=== PATIENT | male | born 1945 | race Caucasian/White ===

== ENCOUNTER 2021-12-13 11:19 | Emergency (ER) | payer MEDICARE, SELFPAY ==
[2021-12-13 11:31] VITALS: BP 150/89; PULSE 76; RESP 16; TEMP 36.5; O2SAT 98
--- NOTE | 2021-12-13 11:33 | ED.EAR ---
HPI - Ear Problem General Chief complaint: Ear Stated complaint: trouble hearing, ear pain Time Seen by Provider: 12/13/21 11:33 Source: patient, RN notes reviewed and old records reviewed Mode of arrival: ambulatory Limitations: no limitations History of Present Illness HPI Narrative: 76 year old male presents to [facility] care with complaints that he had cold symptoms for the past 2 weeks and now he has bilateral ear pain and he can't hear today. Patient denies any cough or any shortness of breath, sore throat or any body aches. He states that he has not taken any OTC medication for his symptoms. MD Complaint: ear pain and decreased hearing Location: bilateral Discharge from ear: Reports no Treatment prior to arrival: none Related Data Allergies Allergy/AdvReac Type Severity Reaction Status Date / Time simvastatin Allergy Unknown Nausea Verified 06/23/20 09:23 Review of Systems Review of Systems: CONSTITUTIONAL: Denies fever, chills, or sweats. EYES: Denies visual changes, redness, or discharge. ENT: Positive for rhinorrhea, congestion, no sore throat,positive for bilateral otalgia and decreased hearing CARDIOVASCULAR: Denies chest pain, palpitations, or edema. RESPIRATORY: Reports occasional cough denies dyspnea. GASTROINTESTINAL: Denies abdominal pain, nausea, vomiting, or diarrhea. GENITOURINARY: Denies dysuria or hematuria. SKIN: Denies rash or itching. MUSCULOSKELETAL: Denies back pain, joint pain, or myalgia. NEUROLOGIC: Denies headache, numbness, or weakness. PSYCHIATRIC: Denies anxiety or depression. All systems reviewed & are unremarkable except as noted in HPI and below PMFSH Past Medical History Medical History (Updated 12/14/21 @ 07:57 by Eveline Bruce NP) Arthritis Fracture, ankle bilateral ankle fracture Surgical History Surgical History (Updated 12/14/21 @ 07:56 by Eveline Bruce NP) History of hip replacement bilateral hip replacements Family History Family History Mother Acute myocardial infarction Sibling Family history of condition Family history of malignant neoplasm of uterus Father Malignant neoplasm of prostate Social History Social History (Updated 12/14/21 @ 07:57 by Eveline Bruce NP) Smoking status: Former smoker Second hand tobacco smoke exposure: No Smoking end date: 02/20/86 Alcohol intake: current Substance use type: does not use Gender identity (if verbalized by the patient): Male Comments At time of signature, agree with nursing past medical, surgical, social and family history. There is no relevant family history pertinent to the presenting complaint Exam Narrative: GENERAL: Well-appearing, well-nourished, and in no acute distress. HEAD: Normocephalic, atraumatic. EYES: PERRLA and EOMI. ENT: Nares with minimal redness and clear rhinorrhea no epistaxis. Mucous membranes moist.TM's bilaterally red and bulging with dull light reflex, throat pink with no lesions or swelling. NECK: Supple.no lymphadenopathy CHEST: Clear to auscultation. No respiratory distress.SAO2 98% on room air HEART: Regular rate and rhythm. No murmur heard. Normal peripheral pulses. ABDOMEN: Soft, nontender, nondistended, normal active bowel sounds. EXTREMITIES: Normal range of motion. No edema. SKIN: Warm, dry, no rash. NEURO: No focal deficits. Alert and oriented x3. Course Course Level of Care: Express Care Visit Vital Signs Vital signs: Vital Signs Temperature 36.5 C 12/13/21 11:31 Pulse Rate 76 12/13/21 11:31 Respiratory Rate 16 12/13/21 11:31 Blood Pressure 150/89 H 12/13/21 11:31 Pulse Oximetry 98 12/13/21 11:31 Temperature 36.5 C 12/13/21 11:31 Pulse Rate 76 12/13/21 11:31 Respiratory Rate 16 12/13/21 11:31 Blood Pressure 150/89 H 12/13/21 11:31 Pulse Oximetry 98 12/13/21 11:31 Medical Decision Making Differential Diagnosis Differential Diagnosis: otit
== END 2021-12-13 11:42 | disposition home or self-care (01) ==
PROVIDERS: Emergency Provider Registered Nurse
DX: H65.03 Acute serous otitis media, bilateral (principal); Z87.891 Personal history of nicotine dependence; M19.90 Unspecified osteoarthritis, unspecified site; Z96.643 Presence of artificial hip joint, bilateral
CPT/HCPCS: 99213; G0463

== ENCOUNTER 2022-01-15 13:39 | Emergency (ER) | payer MEDICARE, SELFPAY ==
[2022-01-15 13:57] VITALS: BP 124/71; PULSE 64; RESP 16; TEMP 36.6; O2SAT 98
--- NOTE | 2022-01-15 14:08 | ED.URI ---
HPI - URI/Sore Throat General Chief Complaint: Upper Respiratory Infection Stated Complaint: sinus drainage Time Seen by Provider: 01/15/22 14:00 Source: patient Mode of arrival: ambulatory Limitations: no limitations History of Present Illness HPI Narrative: Mr. Talbot is a 76-year-old male patient presenting to the clinic today with complaints of sinus drainage times 4-5 days. He reports that he was placed on Augmentin for 10 days for a bilateral ear infection and he just finished that up about 4-5 days ago however he developed sinus drainage at that time. He denies any fever or chills. He reports that his nose is running excessively so much that is cause some sores to his chin and upper lip. MD elicited complaint: sore throat and nasal congestion Related Data Allergies Allergy/AdvReac Type Severity Reaction Status Date / Time simvastatin Allergy Unknown Nausea Verified 06/23/20 09:23 Review of Systems Review of Systems: Pertinent positives per HPI. Patient denies any fever, chills, rash, headache, visual changes, dizziness, cough, shortness of breath, chest pain, palpitations, nausea, vomiting, diarrhea, constipation, abdominal pain, or any urinary issues. [facility] Past Medical History Medical History Arthritis Fracture, ankle bilateral ankle fracture Surgical History Surgical History History of hip replacement bilateral hip replacements Family History Family History Mother Acute myocardial infarction Sibling Family history of condition Family history of malignant neoplasm of uterus Father Malignant neoplasm of prostate Social History Social History Smoking status: Former smoker Second hand tobacco smoke exposure: No Smoking end date: 02/20/86 Alcohol intake: current Substance use type: does not use Gender identity (if verbalized by the patient): Male Comments At the time of my signature, I reviewed and agree with the nursing past medical, surgical, social, and family history. There is no relevant family history pertinent to the patient complaint. Exam Narrative: General: Well-developed, well nourished, in no apparent distress Head: Normocephalic, atraumatic Eyes: Pupils equally round and reactive to light bilaterally, EOM intact, sclera and conjunctive clear, no discharge, lids normal Ears: TMs intact and dull, ear canals clear, no drainage, grossly hearing normal. Nose: Nares patent, clear nasal discharge, severe inflammation, mild sinus tenderness. Mouth: Oral pharynx without lesions or masses, good dentition, MMM. Has yellow crusted skin sores to the top of the upper lip as well as around the mouth Neck: Supple, trachea midline, no enlargement of anterior or posterior cervical nodes, no thyroid masses or goiter palpable. Cardio: Regular rate and rhythm, s1 and s2 normal, no murmur appreciated. Resp: Clear to auscultation bilaterally, no rhonchi, rales, wheezing or rubs Course Course Emergency Course: Portions of this record may have been created with voice recognition software. Level of Care: Express Care Visit Vital Signs Vital signs: Vital Signs Temperature 36.6 C 01/15/22 13:57 Pulse Rate 64 01/15/22 13:57 Respiratory Rate 16 01/15/22 13:57 Blood Pressure 124/71 01/15/22 13:57 Pulse Oximetry 98 01/15/22 13:57 Temperature 36.6 C 01/15/22 13:57 Pulse Rate 64 01/15/22 13:57 Respiratory Rate 16 01/15/22 13:57 Blood Pressure 124/71 01/15/22 13:57 Pulse Oximetry 98 01/15/22 13:57 Vital signs reviewed MDM - URI/Sore Throat MDM Narrative Medical decision making narrative: At the time of visit patient is resting comfortably on the exam table. I suspect he has a upper respiratory infection. H
== END 2022-01-15 14:16 | disposition home or self-care (01) ==
PROVIDERS: Emergency Provider Nurse Practitioner Family
DX: J06.9 Acute upper respiratory infection, unspecified (principal); L08.9 Local infection of the skin and subcutaneous tissue, unspecified; B95.8 Unspecified staphylococcus as the cause of diseases classified elsewhere; Z87.891 Personal history of nicotine dependence
CPT/HCPCS: 99213; G0463

== ENCOUNTER 2022-01-27 09:48 | Emergency (ER) | payer MEDICARE, SELFPAY ==
[2022-01-27 10:10] VITALS: BP 148/82; PULSE 67; RESP 20; TEMP 36.3; O2SAT 99
--- NOTE | 2022-01-27 10:15 | ED.URI ---
HPI - URI/Sore Throat General Chief Complaint: Upper Respiratory Infection Stated Complaint: headache, sinus drainage Time Seen by Provider: 01/27/22 10:15 Source: patient Mode of arrival: ambulatory Limitations: no limitations History of Present Illness HPI Narrative: 76-year-old male presents with complaint of runny nose, postnasal drainage for 2-3 days. Not taking [id number] medications to treat his symptoms. Afebrile. No cough or shortness of breath. No nausea vomiting diarrhea. Patient is well appearing. Has not had a PCP for 2 years. Reports history of bacterial sinus infections and ear infections so came in to have his ear checked. All systems reviewed and negative except as noted above. Related Data Allergies Allergy/AdvReac Type Severity Reaction Status Date / Time simvastatin Allergy Unknown Nausea Verified 06/23/20 09:23 Review of Systems Review of Systems: CONSTITUTIONAL: Denies fever, chills, or sweats. EYES: Denies visual changes, redness, or discharge. ENT: Reports rhinorrhea, postnasal drainage. Denies congestion, sore throat, or otalgia. CARDIOVASCULAR: Denies chest pain, palpitations, or edema. RESPIRATORY: Denies cough or dyspnea. GASTROINTESTINAL: Denies abdominal pain, nausea, vomiting, or diarrhea. GENITOURINARY: Denies dysuria or hematuria. SKIN: Denies rash or itching. MUSCULOSKELETAL: Denies back pain, joint pain, or myalgia. NEUROLOGIC: Denies headache, numbness, or weakness. PSYCHIATRIC: Denies anxiety or depression. All other systems reviewed are negative, except as documented in HPI. [facility] Past Medical History Medical History Arthritis Fracture, ankle bilateral ankle fracture Surgical History Surgical History History of hip replacement bilateral hip replacements Family History Family History Mother Acute myocardial infarction Sibling Family history of condition Family history of malignant neoplasm of uterus Father Malignant neoplasm of prostate Social History Social History Smoking status: Former smoker Second hand tobacco smoke exposure: No Smoking end date: 02/20/86 Alcohol intake: current Substance use type: does not use Gender identity (if verbalized by the patient): Male Comments At time of signature, agree with nursing past medical, surgical, social and family history. There is no relevant family history pertinent to the presenting complaint. Exam Narrative: GENERAL: This is a well-nourished, well-developed patient, in no apparent distress. HEAD: normocephalic, atraumatic. EYES: PERRL. Sclera clear/white. Vision is grossly intact. EARS: External ears normal, auditory canals clear and without drainage, TMs normal without perforation. Hearing grossly intact. NOSE: External nose normal with clear nasal drainage, mild erythema dinner tray THROAT: Mucous membranes moist, clear postnasal drainage. NECK: Neck supple, non-tender without lymphadenopathy, masses or thyromegaly. CARDIOVASCULAR: Regular rate and rhythm without murmurs, gallops, or rubs. RESPIRATORY: Clear to auscultation. Breath sounds equal bilaterally. No wheezes, rales, or rhonchi. SKIN: warm, Dry, intact with no suspicious lesions or rash, good texture and turgor. NEURO: awake, alert, and oriented to person, place and time. There were no obvious focal neurologic abnormalities. EXTREMITIES: No joint tenderness, effusion, or edema noted. Course Course Level of Care: Express Care Visit Vital Signs Vital signs: Vital Signs Temperature 36.3 C L 01/27/22 10:10 Pulse Rate 67 01/27/22 10:10 Respiratory Rate 20 01/27/22 10:10 Blood Pressure 148/82 H 01/27/22 10:10 Pulse Oximetry 99 01/27/22 10:10 Oxygen Delivery Room Air 12
== END 2022-01-27 10:28 | disposition home or self-care (01) ==
PROVIDERS: Emergency Provider Nurse Practitioner Family
DX: J32.9 Chronic sinusitis, unspecified (principal); Z87.891 Personal history of nicotine dependence; M19.90 Unspecified osteoarthritis, unspecified site
CPT/HCPCS: 99213; G0463

== ENCOUNTER 2023-06-19 09:41 | Emergency (ER) | payer MEDICARE, SELFPAY ==
[2023-06-19 09:49] VITALS: BP 160/78; PULSE 81; RESP 16; TEMP 36.8; O2SAT 100
--- NOTE | 2023-06-19 10:15 | ED.GENADULT ---
HPI - General Adult General Chief complaint: Medical Clearance Stated complaint: Sore on Butt Time Seen by Provider: 06/19/23 10:22 Source: patient, RN notes reviewed and old records reviewed Mode of arrival: ambulatory Limitations: no limitations History of Present Illness HPI narrative: 78-year-old male presents to the [facility] with multiple complaints. Patient presents with a sore on the right inner buttock. Patient states it has been getting worse over the last 2 days. Denies any treatment prior to arrival. Reports pain when sitting. Complains of constipation since yesterday. States that he has been having a smaller than normal bowel movement. No treatment prior to arrival states for the last 3 days he has had gout in his left great toe. Swelling was noted. No redness. Has been taking Tylenol and icing it. Has a history of gout. Patient denies having a primary care provider states he has not seen a primary care provider in several years. Denies taking any daily medication Related Data Allergies Allergy/AdvReac Type Severity Reaction Status Date / Time simvastatin Allergy Unknown Nausea Verified 06/19/23 10:59 Review of Systems Review of Systems: All systems reviewed & are unremarkable except as noted in HPI and below Constitutional: Constitutional: Reports no additional constitutional complaints Eyes: Eyes: Reports no additional eye complaints ENT: Reports system reviewed and no additional complaints, except as documented Cardiovascular: Cardiovascular: Reports no additional cardiovascular complaints, Denies chest pain and Denies dyspnea Respiratory: Respiratory: Reports no additional respiratory complaints, Denies chest congestion, Denies cough and Denies dyspnea Gastrointestinal: Gastrointestinal: Reports as per HPI, Denies abdominal pain, Reports constipation, Denies nausea and Denies vomiting Musculoskeletal: Musculoskeletal: Reports as per HPI, Reports arthralgias (Left great toe) and Reports joint swelling (MTP the left great toe) Integumentary/Breasts: Skin/Breast: Reports as per HPI Neurologic: Reports system reviewed and no additional complaints, except as documented Psychiatric: Psychiatric: Reports no additional psychiatric complaints Allergic/Immunologic: Allergic/Immunologic: Reports no additional allergic/immunologic complaints [facility] Past Medical History Medical History Arthritis Fracture, ankle bilateral ankle fracture Surgical History Surgical History History of hip replacement bilateral hip replacements Family History Family History Mother Acute myocardial infarction Sibling Family history of condition Family history of malignant neoplasm of uterus Father Malignant neoplasm of prostate Social History Social History Smoking status: Former smoker Second hand tobacco smoke exposure: No Smoking end date: 02/20/86 Alcohol intake: current Substance use type: does not use Gender identity (if verbalized by the patient): Male Comments At the time of my signature, I reviewed and agree with the nursing past medical, surgical, social, and family history. There is no relevant family history pertinent to the patient complaint. Exam Const: General: cooperative, healthy appearing, comfortable, no acute distress, well developed, alert and well nourished Nutritional Appearance: well nourished Orientation/consciousness: patient oriented x3 Limitations: no limitations HENMT: Head: normal to inspection Ears: hearing grossly normal bilaterally and external ears normal Face/Nose/Sinus: Normal external nose present, Normal nares present, Normal nasal mucous membranes and turbinates present, normal facial exam and face symmetric Face and sinus: normal faci
== END 2023-06-19 10:37 | disposition short-term general hospital (02) ==
PROVIDERS: Emergency Provider Nurse Practitioner
DX: K62.89 Other specified diseases of anus and rectum (principal); M79.675 Pain in left toe(s); Z87.891 Personal history of nicotine dependence; M19.90 Unspecified osteoarthritis, unspecified site
CPT/HCPCS: 99212; G0463

== ENCOUNTER 2023-06-19 10:58 | Emergency (ER) | payer MEDICARE, SELFPAY ==
--- NOTE | ~2023-06-19 | CT_ITS ---
EXAMINATION: CT abdomen pelvis w con DATE: 06/19/2023 11:51 INDICATION: Perirectal abscess TECHNIQUE: Computed tomography (CT) of the abdomen and pelvis was performed with 100 cc Omnipaque 350 intravenous contrast. The dose-length product was 455.57 mGy-cm. Automated exposure control and iter ative reconstruction technique were employed. COMPARISON: No prior studies for comparison. FINDINGS: There is a 3 mm left lower lobe nodule, image 28. Heart size normal. No significant pleural or pericardial effusion. Small hiatal hernia. The liver, spleen, pancreas, adrenal glands are unrema rkable. Gallbladder is present. There are bilateral renal cysts. Normal appendix. Nonobstructive jcaob l gas pattern. There is a bilobed perirectal abscess crossing the midline measuring 3.8 x 3.6 x 3.7 c m. No free air. No free fluid. There are small fat-containing umbilical hernias. Severe lumbar spondy losis. There are bilateral hip arthroplasties. IMPRESSION: 1. Perirectal abscess measuring 3.8 x 3.6 x 3.7 cm. 2: Left lower lobe nodule measuring 3 mm, likely benign. Reviewed, dictated and finalized at location B.
[2023-06-19 11:15] VITALS: BP 152/97; PULSE 77; RESP 16; TEMP 36.6; O2SAT 98
[2023-06-19 11:42] LABS: Basophils Percent Auto 0.4 % (0.2-1.2); Eosinophils Absolute Auto 0.1 K/mm3 (0-0.3); Eosinophils Percent Auto 1.4 % (0-4.4); Hematocrit 44.2 % (42.0-52.0); Hemoglobin 14.5 g/dL (14.0-18.0); Immature Granulocyte Absolute 0.03 K/mm3 (0.00-0.031); Immature Granulocyte Percent A 0.3 % (0-0.5); Lymphocytes Absolute Auto 1.18 K/mm3 (0.9-3.2); Lymphocytes Percent Auto 11.7 % (18.3-44.2); Mean Corpuscular HGB Conc 32.8 g/dl (32-36); Mean Corpuscular Hemoglobin 33.9 pg (26-34); Mean Corpuscular Volume 103.3 fl (80-100); Mean Platelet Volume 9.6 fl (7.4-10.4); Monocytes Absolute Auto 0.6 K/mm3 (0.1-0.6); Monocytes Percent Auto 5.5 % (2.6-8.5); Neutrophils Absolute Auto 8.2 K/mm3 (1.3-6.7); Neutrophils Percent Auto 80.7 % (45.5-73.1); Platelet Count Result 312 k/mm3 (150-375); Red Blood Count 4.28 M/mm3 (4.6-6.20); Red Cell Distribution Width 12.8 % (11.5-14.5); White Blood Count 10.1 K/mm3 (4.5-10.0)
[2023-06-19 11:48] LABS: Estimated CRCL calculation 36 ml/min; Estimated Glomerular Filt Rate 54
--- NOTE | 2023-06-19 12:00 | ED.SKABFB ---
HPI - Skin/Abscess/Foreign Bdy General Chief complaint: Skin/Abscess/Foreign Body Stated complaint: rectal abscess Time Seen by Provider: 06/19/23 11:30 Source: patient, family and other ([facility] at urgent care) Mode of arrival: ambulatory Limitations: no limitations History of Present Illness HPI narrative: Patient presents with pain at his rectum x3 days. No fevers. Never happened before. Related Data Allergies Allergy/AdvReac Type Severity Reaction Status Date / Time simvastatin Allergy Unknown Nausea Verified 06/19/23 11:17 [facility] Past Medical History Medical History Arthritis Fracture, ankle bilateral ankle fracture Surgical History Surgical History History of hip replacement bilateral hip replacements Family History Family History Mother Acute myocardial infarction Sibling Family history of condition Family history of malignant neoplasm of uterus Father Malignant neoplasm of prostate Social History Social History (Updated 06/20/23 @ 06:10 by Eleanor Pang MD) Smoking status: Former smoker Second hand tobacco smoke exposure: No Smoking end date: 02/20/86 Alcohol intake: current Substance use type: does not use Occupation/Education: retired Additional occupation/education comments: 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 HEAD: Normocephalic, atraumatic. EYES: Non injected, non icteric ENT: Nares clear, no rhinorrhea or epistaxis. NECK: Supple. CHEST: Speaking in full sentences. No respiratory distress. HEART: Regular rate and rhythm. . ABDOMEN: Soft, nondistended. Buttock/rectal exam: Normal rectal sphincter. No evidence of fissure. Patient has erythematous mass at rectum approximately 3 o'clock to 6 o'clock position, soft medially and more indurated along lateral edges, tender to palpation. EXTREMITIES: Normal range of motion. No edema. SKIN: Warm, dry, no rash. NEURO: No focal deficits. Alert and oriented x3. PSYCH: Normal mood and affect. Course Vital Signs Vital signs: Vital Signs Temperature 97.8 F 06/19/23 11:15 Pulse Rate 77 06/19/23 11:15 Respiratory Rate 16 06/19/23 11:15 Blood Pressure 152/97 H 06/19/23 11:15 Pulse Oximetry 98 06/19/23 11:15 Temperature 97.8 F 06/19/23 11:15 Pulse Rate 77 06/19/23 11:15 Respiratory Rate 16 06/19/23 11:15 Blood Pressure 152/97 H 06/19/23 11:15 Pulse Oximetry 98 06/19/23 11:15 MDM - Skin/Abscess/Foreign Bdy MDM Narrative Medical decision making narrative: Patient sent from urgent care with concern for anorectal abscess. In the ED he is afebrile with VS that show hypertension. Soft erythematous lesion on bedside exam from 3 o'clock to 6 o'clock position, soft medially and becoming indurated laterally. Tender to palpation. Given size and location, consulted general surgery. Dr. Dinero drains abscess at bedside. Recommends discharge home with pain medication and Augmentin and follow-up in clinic. Discharged in stable condition. Differential Diagnosis Differential diagnosis: Likely abscess of skin or subcutaneous tissue and other (spectrum of perianal abscess disorders/location) Lab Data Attestation: I reviewed the patient's lab results. Lab results narrative: Mild leuekocytosis 06/19/23 11:33 06/19/23 11:45 Labs: Lab Results 06/19/23 06/19/23 06/19/23 Range/Units 11:32 11:33 11:45 WBC 10.1 H (4.5-10.0) K/mm3 RBC 4.28 L (4.6-6.20) M/mm3 Hgb 14.5 (14.0-18.0) g/dL Hct 44.2 (42.0-52.0) % MCV 103.3 H (80-100) fl MCH 33.9 (26-34) pg MCHC 32.8 (32-36) g/dl RDW 12.8 (11.5-14.5) % Plt Count 31
[2023-06-19 12:18] LABS: Lactic Acid Reflex 1.6 mmol/L (0.7-2.0)
[2023-06-19 12:19] LABS: Alanine Aminotransferase 19 U/L (6-50); Albumin Level 4.8 g/dL (3.5-5.1); Alkaline Phosphatase 88 U/L (38-126); Anion Gap 12 mmol/L (4-12); Aspartate Amino Transferase 31 U/L (17-59); Bilirubin,Total 0.8 mg/dL (0.2-1.3); Blood Urea Nitrogen 15 mg/dL (9-20); Calcium 9.8 mg/dL (8.4-10.2); Carbon Dioxide 24 mmol/L (22-30); Chloride 103 mmol/L (98-107); Estimated CRCL calculation 39 ml/min; Estimated Glomerular Filt Rate 59; Glucose 105 mg/dL (65-110); Sodium 139 mmol/L (137-145)
[2023-06-19 13:04] LABS: Uric Acid 6.1 mg/dL (3.5-8.5)
--- NOTE | 2023-06-19 14:17 | PC.NURSE ---
pt irritable in delay of explanation of care, educated him on results being back, and awaiting provider to inform him. Asked EDP for update on POC, ill see him, I have 8 other pt's to update
[2023-06-19 14:20] LABS: Appearance Urine Clear (Clear); Bacteria Urine None Seen /hpf; Bilirubin Urine Negative (Negative); Blood Urine Negative (Negative); Color Urine Yellow (Yellow); Glucose Urine UA Negative (Negative); Ketones Urine Negative (Negative); Leukocyte Esterase Ur Negative LEU/UL (Negative); Nitrate Urine Negative (Negative); Non Pathogenic Casts 0-2; Protein Urine Trace mg/dL (Negative); RBC Urine 0-2 /hpf (0-2); Squamous Epithelial Cell Urine None Seen /hpf (Few); WBC Urine 0-5 /hpf (0-3); pH Urine 5.5 (5.0-9.0)
[2023-06-19 14:21] LABS: Add Urine Microscopic? YES; Specific Grav Ur 1.052 (1.001-1.035)
--- NOTE | 2023-06-19 14:39 | PM.IMHP ---
H&P: HPI History of Present Illness Date/Time: 06/19/23 14:39 Chief Complaint: right perirectal abscess Narrative: Pt is a 78 y/o M presenting to ED c/o severe pain, swelling in R perirectal area. Pt reports area has been progressively worsening over last 3 days. Pt denies any drainage. Pt denies any systemic sx, no f/c, etc. Pt denies previous episodes. Pt seen at urgent care earlier today. Review of Systems Review of Systems: All systems reviewed & are unremarkable except as noted in HPI and below PMFSH Past Medical History Medical History Arthritis Fracture, ankle bilateral ankle fracture Surgical History Surgical History History of hip replacement bilateral hip replacements Family History Family History Mother Acute myocardial infarction Sibling Family history of condition Family history of malignant neoplasm of uterus Father Malignant neoplasm of prostate Social History Social History Smoking status: Former smoker Second hand tobacco smoke exposure: No Smoking end date: 02/20/86 Alcohol intake: current Substance use type: does not use Gender identity (if verbalized by the patient): Male Meds Home Medications and Allergies Home Medications Medication Instructions Recorded Confirmed Type fluticasone propionate 50 1 spray intranasal BID #16 grams 01/27/22 Rx mcg/actuation nasal spray,suspension (Children's Flonase Allergy Relief) loratadine 10 mg tablet (Claritin) 10 mg PO DAILY #30 tabs 01/27/22 Rx Allergies Allergy/AdvReac Type Severity Reaction Status Date / Time simvastatin Allergy Unknown Nausea Verified 06/19/23 11:17 Vital Signs Vital Signs - 24 hr 06/19/23 11:15 Temperature 36.6 C Pulse Rate 77 Respiratory Rate 16 Blood Pressure 152/97 H Pulse Oximetry 98 Exam Const: General: cooperative, in distress mild and uncomfortable HENMT: Head: normal to inspection, normocephalic and atraumatic Eyes: General: appearance normal, both eyes and all related structures Neck: Neck: normal visual inspection, full ROM and no lymphadenopathy Resp: Auscultation: clear to auscultation bilaterally Cardio: Rate: regular rate Rhythm: regular rhythm GI: Inspection: normal to inspection and non-distended GI Palp: No abdominal tenderness and Yes Soft to palpation Skin: Other: R perirectal abscess - 4x4 cm, indurated, fluctuant, +TTP Extrem: General: normal to inspection and full ROM H&P: Results Labs Labs: Short CBC 06/19/23 Range/Units 11:33 WBC 10.1 H (4.5-10.0) K/mm3 Hgb 14.5 (14.0-18.0) g/dL Hct 44.2 (42.0-52.0) % Plt Count 312 (150-375) k/mm3 BMP 06/19/23 06/19/23 11:33 11:45 Sodium 139 Potassium 4.0 Chloride 103 Carbon Dioxide 24 BUN 15 Creatinine 1.20 1.30 Glucose 105 Calcium 9.8 Liver Function 06/19/23 Range/Units 11:33 Total Bilirubin 0.8 (0.2-1.3) mg/dL AST 31 (17-59) U/L ALT 19 (6-50) U/L Alkaline Phosphatase 88 (38-126) U/L Albumin 4.8 (3.5-5.1) g/dL Urine 06/19/23 Range/Units 14:09 Urine Color Yellow (Yellow) Urine Appearance Clear (Clear) Urine pH 5.5 (5.0-9.0) Ur Specific [place] 1.052 H (1.001-1.035) Urine Protein Trace (Negative) mg/dL Urine Glucose (UA) Negative (Negative) mg/dL Imaging CT scan - pelvis: My impression: R perirectal abscess Assessment and Plan Assessment and plan (1) Abscess, anorectal: Code(s): K61.2 - Anorectal abscess Status: Acute Assessment and Plan: will proceed c I and D at bedside, home c po abx, analgesia, f/u 2 wks
--- NOTE | 2023-06-19 15:00 | W.PM.PROC2 ---
Procedure Note - Detailed Date of Procedure 06/19/23 Pre-op Diagnosis Right perirectal abscess x2 Post-op Diagnosis Same Procedure Performed complex incision and drainage right perirectal abscess x2, measuring 4 x 4 x 4 cm Surgeon Kim Dinero MD Anesthesia Local Indications 78-year-old male presenting to the emergency department complaining of severe right perirectal pain, swelling. Workup, including imaging, significant for large right perirectal abscess. Findings Bilobed right perirectal abscess measuring 4 x 4 x 4 cm Description of Procedure The patient was placed in the prone position. Local anesthetic was placed in and around this abscess cavity. Time-out was then done to verify patient's identity, as well as the procedure being performed. The area was then prepped and draped in the normal sterile fashion. I began by making an incision over the most fluctuant area in the inferior portion of the abscess. Immediately a large amount of purulent drainage was noted. I then used a hemostat to bluntly dissect around this cavity. Once the area was completely dissected away and measured approximately 3 x 2 x 4 cm. Of note, this did not connect to the more superior abscess. Given these findings, I made another incision over the central portion of the superior abscess. Again a large amount of purulent drainage was noted. I then used the hemostat to bluntly dissect this cavity as well. This cavity was noted to be smaller measuring approximately 2 x 2 x 4 cm. Once these areas were both completely open and draining, I packed this with quarter-inch iodoform to keep the areas open and draining. Sterile dressing was then placed. The patient tolerated the procedure well. Estimated Blood Loss 5 Drains No Packing Yes Pathology None sent Complications No immediate complications Condition Stable Disposition No change [facility] Billing Surgery - Charge Forward: Surgery Billing
[2023-06-19] MEDS: AMOXICILLIN/CLAVULANATE K 875-125 MG TAB 1 TABLET PO (15:08)
== END 2023-06-19 15:09 | disposition home or self-care (01) ==
PROVIDERS: Emergency Provider Student in an Organized Health Care Education/Training Program
DX: K61.2 Anorectal abscess (principal); D72.820 Lymphocytosis (symptomatic); M19.90 Unspecified osteoarthritis, unspecified site; Z96.643 Presence of artificial hip joint, bilateral; Z87.891 Personal history of nicotine dependence; R91.1 Solitary pulmonary nodule
CPT/HCPCS: 36415; 46040; 74177; 80053; 81001; 83605; 84550; 85025; 87040; 99284; A9270; Q9967

== ENCOUNTER 2025-01-16 04:26 | Emergency (ER) | payer MEDICARE, SELFPAY ==
[2025-01-16 04:30] VITALS: BP 135/80; PULSE 76; RESP 18; TEMP 36.5; O2SAT 98
--- NOTE | 2025-01-16 04:42 | ED.SKABFB ---
HPI - Skin/Abscess/Foreign Bdy General Chief complaint: Skin/Abscess/Foreign Body Stated complaint: rectal pain Time Seen by Provider: 01/16/25 04:29 History of Present Illness HPI narrative: 79-year-old male with a history of previous perirectal abscess presenting to the emergency department with perirectal pain. He states it feels very similar to last time he had a perirectal abscess which was in May 2023 where he received a bedside incision and drainage. Patient states it is not as severe as that time as he has only had symptoms for 3 days and recognize the symptoms prior to letting him get worse. Has not taken anything for pain control. States that the pain is causing him some discomfort with walking. Denies any other symptoms such as fever, chills. No nausea, vomiting, abdominal discomfort. No difficulties urinating or defecating. Was otherwise in his normal state of health. Related Data Allergies Allergy/AdvReac Type Severity Reaction Status Date / Time simvastatin Allergy Unknown Nausea Verified 01/16/25 04:41 Review of Systems Review of Systems: As reviewed above in HPI All systems reviewed & are unremarkable except as noted in HPI and below PMFSH Past Medical History Medical History Fracture, ankle bilateral ankle fracture Arthritis Surgical History Surgical History History of hip replacement bilateral hip replacements Family History Family History Mother Acute myocardial infarction Sibling Family history of condition Family history of malignant neoplasm of uterus Father Malignant neoplasm of prostate Social History Social History Smoking status: Former smoker Second hand tobacco smoke exposure: No Smoking end date: 02/20/86 Alcohol intake: current Substance use type: does not use Occupation/Education: retired Additional occupation/education comments: 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 Mucous membranes moist. NECK: Supple. CHEST: [Clear to auscultation. No respiratory distress.] HEART: [Regular rate and rhythm]. No murmur heard. [Normal peripheral pulses.] ABDOMEN: [Soft, nondistended], [nontender], [No rigidity or guarding] : Fluctuant area on the right perirectal region with tenderness to palpation. Measures approximately 3 cm x 1.5-2 cm. No bleeding or ulceration. No active drainage. Does not connect to the rectum and appear superficial on bedside ultrasound. EXTREMITIES: Normal range of motion. [No edema.] SKIN: Warm, dry, no rash. NEURO: [No focal deficits]. Alert and oriented [x3.] PSYCH: [Normal mood and affect.] Course Vital Signs Vital signs: Vital Signs Temperature 36.5 C 01/16/25 04:30 Pulse Rate 76 01/16/25 04:30 Respiratory Rate 18 01/16/25 04:30 Blood Pressure 135/80 01/16/25 04:30 Pulse Oximetry 98 01/16/25 04:30 Oxygen Delivery Room Air 01/16/25 04:30 Temperature 36.5 C 01/16/25 04:30 Pulse Rate 65 01/16/25 05:33 Respiratory Rate 18 01/16/25 05:33 Blood Pressure 133/82 01/16/25 05:33 Pulse Oximetry 99 01/16/25 05:33 Oxygen Delivery Room Air 01/16/25 04:30 Procedures Abscess I/D cindy-rectal: Date of Incision: 01/16/25 Time of Incision: 05:10 Side (if applicable): right Sedation/analgesia: other ([place]) Local Anesthetic: lidocaine 1% and with epi Amount of anesthesia used (mL): 8 Technique: incised with #11 blade and probed loculations Amount of fluid expressed (mL): 10 Irrigation: Yes Packing used?: iodoform I&D Results: Pus Abcess I&D Additional Comments: Stab incision made with 11 blade, probed loculations with removal of purulent abscess material and foul odor. Minimal bleeding. Controlled. Packed with iodoform gauze, dressing applied over top. Tolerated well with no complications. MDM - Skin/Abscess/Foreign Bdy MDM Narrative Medical decision making narrative: 79-year-old male with a history of previous perirectal abscess presenting to the emergency department with perirectal pain. He states it feels very similar to last time he had a perirectal abscess which was in May 2023 where he received a bedside incision and drainage. Patient states it is not as severe as that time as he has only had symptoms for 3 days and recognize the symptoms prior to letting him get worse. Has not taken anything for pain control. States that the pain is causing him some discomfort with walking. Denies any other symptoms such as fever, chills. No nausea, vomiting, abdominal discomfort. No difficulties urinating or defecating. Was otherwise in his normal state of health. On exam patient does have a fluctuant right-sided perirectal abscess approximately 3 cm x 1.5-2 cm. Tender to palpation. Bedside ultrasound confirms perirectal abscess that appears superficial without any obvious deep tissue involvement. He is afebrile with normal vital signs and no systemic symptoms of infection. Same location as his previous abscess that he never followed up with surgery for. Did consent for bedside incision and drainage. Given a dose of pain medications and antibiotics and will be discharged with regimen upon completion of procedure. Medical Records Attestation: I reviewed the patient's medical records. Discharge Plan Discharge Clinical Impression: Perirectal abscess Patient Disposition: Home Condition: Stable Instructions: Antibiotic Form, Abscess (ED) Additional Instructions: You had an incision and drainage conducted at bedside. Take the antibiotics and pain control medications. Follow-up with general surgery in clinic. Return with any new or worsening symptoms at any time. The incision site was left open with a gauze packing. Please take this packing out in the next 24-48 hours while in the shower and then apply a bandage over top of the wound once again. Patient Language: Togolese Prescriptions: New hydrocodone-acetaminophen 5-325 mg tablet 1 tablet PO Q8H PRN (Reason: pain) Qty: 14 0RF amoxicillin-pot clavulanate 875-125 mg tablet 1 tablet PO Q12H 7 Days Qty: 14 0RF No Action fluticasone propionate [Children's Flonase Allergy Rlf] 50 mcg/actuation spray,suspension 1 spray intranasal BID Qty: 16 0RF Rx Instructions: administer into each nostril loratadine [Claritin] 10 mg tablet 10 mg PO DAILY Qty: 30 0RF amoxicillin-pot clavulanate [Augmentin] 500-125 mg tablet 1 tablet PO Q12H Qty: 14 0RF acetaminophen 500 mg capsule 1,000 mg PO Q6H PRN (Reason: pain) Qty: 20 0RF hydrocodone-acetaminophen 5-325 mg tablet 1 tablet PO Q8H PRN (Reason: pain) Qty: 10 0RF docusate sodium [Colace] 100 mg capsule 100 mg PO DAILY Qty: 10 0RF Follow-up/Referrals: Kim Dinero MD [Physician, General Surgery] - 1 Week Referral Note: Perirectal abscess, recurrent UNKNOWN,DOCTOR [Non-Staff] Time of Disposition: 05:20
[2025-01-16] MEDS: HYDROcodone/acetaminophen (*CRX) 5-325 MG TABLET 1 TAB PO (04:47)
--- OUTSIDE RECORDS SUMMARY | 2025-01-16 05:26 | XMS_ITS | Clinical Summary ---
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 Phone Unavailable Primary Care Provider Unavailabl e Social History Tobacco Use Types Packs/Day Years Used Date Smoking Tobacco: Never Assessed Sex and Gender Information Value Date Recorded Sex Assigned at Not on file Legal Sex Male 9:30 PM CDT Gender Identity Not on file Sexual Orientation Not on file Plan of Treatment Health Maintenance Due Date Last Done Comments Hepatitis C 02/20/1963 DTaP, Tdap and Td Vaccines ( 1 - Tdap) 1965 Pneumococcal Vaccine: 50+ Ye ars (1 of 1 - PCV) 02/20/1996 Zoster Vaccines (1 of 2) 02/20/1996 RSV Immunization or 60+ Years (1 - 1-dose 75+ series) 2021 COVID-19 Vaccine (1 - 2024-2 6 season) 2024 Influenza Adult (#1) 2024 Hepatitis A Vaccines Aged Out No long er eligible based on patient's age to complete this topic Meningococcal B Vaccine Aged Out No l onger eligible based on patient's age to complete this topic Meningococcal Vaccine Aged Out No matthew shade eligible based on patient's age to complete this topic RSV Immunizations Under 20 Months Aged Out No longer eligible based on patient's age to complete this topic
[2025-01-16 05:33] VITALS: BP 133/82; PULSE 65; RESP 18; O2SAT 99
== END 2025-01-16 05:34 | disposition home or self-care (01) ==
LOC: ANHED 05:24
PROVIDERS: Emergency Provider Student in an Organized Health Care Education/Training Program
DX: K61.1 Rectal abscess (principal); M19.90 Unspecified osteoarthritis, unspecified site; Z87.891 Personal history of nicotine dependence
CPT/HCPCS: 10061; 46040; 99283; A9270

== ENCOUNTER 2025-01-25 07:35 | Inpatient (IN) | payer MEDICARE, SELFPAY ==
[2025-01-25] VITALS (19 sets, daily range): BP systolic 87–159; BP diastolic 44–107; PULSE 56–79; RESP 16–20; TEMP 36.4–37.4; O2SAT 93–100; BMI 22.8
--- NOTE | ~2025-01-25 | CT_ITS ---
CT abdomen pelvis w con Clinical History: constipation . Comparison: 06/19/2023 Technique: Axial images lung bases to symphysis pubis IV contrast information not listed in PACS Coronal, sagittal reformats CT images acquired with automatic exposure control for dose reduction DLP: 276 mGy-cm Findings: Lung bases: Mild scarring. Visualized heart and pericardium: Unremarkable. Liver: Unremarkable. Gallbladder: Unremarkable. Spleen: Unremarkable. Pancreas: Unremarkable. Adrenal glands: Unremarkable. Kidneys: Right kidney- No hydronephrosis. No renal stones. Small upper pole exophytic cyst. Left kidney- No hydronephrosis. No renal stones. Prominent lower pole exophytic septated cyst. Circumaortic renal vein. Distal esophagus/stomach: Small hiatal hernia. Small bowel loops: Normal caliber and wall thickness. Colon: Normal caliber and wall thickness. Normal RLQ appendix. Septated perirectal abscess. Roughly 4 cm. Nodes: No enlarged nodes. Peritoneum: No ascites. No free air. Pelvis obscured from streak artifact from hip prostheses. Urinary bladder: Unremarkable. Prostate: Partially obscured but probably unremarkable. Bones: No acute bony abnormality. Soft tissues: Unremarkable. Aorta: No aneurysm or dissection. Atherosclerotic disease. IVC: Unremarkable. Main portal vein/SMV/splenic vein: Patent. IMPRESSION: 1. Septated perirectal abscess, roughly 4 cm. Reviewed, dictated and finalized at location R. [employer]ER
--- OUTSIDE RECORDS SUMMARY | 2025-01-25 07:38 | XMS_ITS | Clinical Summary ---
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
--- OUTSIDE RECORDS SUMMARY | 2025-01-25 08:32 | XMS_ITS | Clinical Summary ---
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
[2025-01-25 09:57] LABS: Hematocrit 35.5 % (42.0-52.0); Hemoglobin 12.0 g/dL (14.0-18.0); Immature Granulocyte Percent A 0.8 % (0-0.5); Lymphocytes Absolute Auto 1.52 K/mm3 (0.9-3.2); Mean Corpuscular HGB Conc 33.8 g/dl (32-36); Mean Corpuscular Hemoglobin 33.8 pg (26-34); Mean Corpuscular Volume 100.0 fl (80-100); Nucleated Red Blood Cells Absolute Auto 0.000 K/mm3 (0.0-0.012); Nucleated Red Blood Cells Perc 0.0 % (0.0-0.2); Platelet Count Result 344 k/mm3 (150-375); Red Blood Count 3.55 M/mm3 (4.6-6.20); White Blood Count 15.5 K/mm3 (4.5-10.0)
--- NOTE | 2025-01-25 10:03 | ED_ITS ---
HPI - General Adult General Chief complaint: Unspecified Stated complaint: constipated Time Seen by Provider: 01/25/25 08:07 History of Present Illness HPI narrative: 79-year-old male presenting to the emergency department for evaluation for issues with constipation. Patient states he does have longstanding issues with constipation and states that has acutely worsened over the last 4 days. Patient was here a few weeks ago and reports he was started on medications to help with constipation but has been out of this. Patient states he has been taking something [id number] but is unsure what it is. Patient feels he is acutely blocked. Patient does have a prior history of a perirectal abscess. Patient initially had this drained by surgery in the emergency department back in May. Patient had a recurrence of the abscess and was strain in the emergency department on January 16. Patient states symptoms have persisted. Related Data Home Medications ?Medication ?Instructions ?Recorded ?Confirmed ?Last Taken ?Type loratadine 10 mg tablet (Claritin) 10 mg PO DAILY PRN allergy symptoms 01/25/25 01/25/25 Unknown History Allergies Allergy/AdvReac Type Severity Reaction Status Date / Time simvastatin AdvReac Unknown Nausea Verified 01/25/25 13:38 Review of Systems 2 Review of Systems: All systems reviewed & are unremarkable except as noted in HPI and below PMFSH Past Medical History Medical History Fracture, ankle bilateral ankle fracture Arthritis Surgical History Surgical History History of hip replacement bilateral hip replacements Family History Family History Mother Acute myocardial infarction Sibling Family history of condition Family history of malignant neoplasm of uterus Father Malignant neoplasm of prostate Social History Social History Smoking packs per day: 2 Smoking cigarettes per day: 40.0 Years smoked: 30 Smoking pack-years: 60.00 Smoking status: Former smoker Tobacco type: cigarettes Second hand tobacco smoke exposure: No Smoking end date: 02/20/86 Alcohol intake: current Drinks per week: 24 Substance use: never Substance use type: does not use Lack of Transportation: No Lack of Food: Never True Current Housing: I Have Housing Concerned About Future Housing: No Difficulty Paying Gas/Electric Bills: No Difficulty Paying for Meds: No Currently Unemployed: No Education: Decline to Answer Difficulty w/ Childcare or Family Care: Decline to Answer Occupation/Education: retired Additional occupation/education comments: 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 HEAD: normocephalic, atraumatic. EYES: PERRLA/EOMI, conjunctivae clear. NOSE: Normal no drainage EARS:TMS clear with good light reflex. THROAT: Pharynx clear, no exudate. NECK: Supple. No adenopathy, no masses. RESPIRATORY: Airway patent, respirations nonlabored. Clear to auscultation bilaterally, no rales, rhonchi, wheezing. CARDIOVASCULAR: Regular rate and rhythm without murmurs rubs or gallops. ABDOMINAL: Soft, nontender, nondistended, normal bowel sounds MUSCULOSKELETAL: Moves all extremities. Strength/ROM intact, No edema, No calf tenderness. NEURO: Alert. Cranial nerves II through XII intact. Good gait. Good coordination SKIN: Warm, dry. Normal Color Rectal exam: Area induration perirectally. Course Vital Signs Vital signs: Vital Signs Temperature 97.6 F 01/25/25 07:37 Pulse Rate 71 01/25/25 07:37 Respiratory Rate 16 01/25/25 07:37 Blood Pressure 156/107 H 01/25/25 07:37 Pulse Oximetry 96 01/25/25 07:37 Oxygen Delivery Room Air 01/25/25 07:37 Temperature 97.6 F 01/25/25 07:37 Pulse Rate 61 01/25/25 12:16 Respiratory Rate 18 01/25/25 12:16 Blood Pressure 136/72 01/25/25 12:16 Pulse Oximetry 100 01/25/25 12:16 Oxygen Delivery Room Air 01/25/25 07:37 MDM MDM Narrative Medical decision making narrative: 79-year-old male present to the emergency department for evaluation for constipation and rectal pain. Patient is currently afebrile but does have an elevated leukocytosis of 15.5 and hemoglobin of 12.0. Patient does have an area of induration in the right perirectal region. patient does have localized erythema and induration but no fluctuance was noted. CT scan was ordered to evaluate for diverticulitis, colitis, constipation and abscess. CT scan does show a septated 4 cm perirectal abscess. Patient has previously been seen by surgery for this and did have drainage of the abscess previously by surgery. Patient is also seen in the emergency department approximately a week ago and had drainage at bedside then. Abscess did not resolve. Abscess does show that is septated and I suspect it would benefit from surgical evaluation. Surgery was consulted from the emergency department today. Blood cultures ordered and patient was started on antibiotics. Dr. Pozo states he will take the patient to surgery to be debrided. Patient was updated the results of the workup and plan for admission. Patient was made NPO. Patient was started on Zosyn in the emergency department. Patient was admitted directly to surgery. Differential Diagnosis Differential Diagnosis: Small-bowel obstruction, constipation, hemorrhoid, perirectal abscess,. All abscess Lab Data MDM Lab Attestation statement: I personally reviewed the patient's lab results. 01/25/25 09:51 01/25/25 09:51 Labs: Lab Results 01/25/25 Range/Units 09:51 WBC 15.5 H (4.5-10.0) K/mm3 RBC 3.55 L (4.6-6.20) M/mm3 Hgb 12.0 L (14.0-18.0) g/dL Hct 35.5 L (42.0-52.0) % MCV 100.0 (80-100) fl MCH 33.8 (26-34) pg MCHC 33.8 (32-36) g/dl RDW 12.9 (11.5-14.5) % Plt Count 344 (150-375) k/mm3 MPV 9.6 (7.4-10.4) fl Immature Gran % (Auto) 0.8 H (0-0.5) % Neut % (Auto) 84.4 H (45.5-73.1) % Lymph % (Auto) 9.8 L (18.3-44.2) % Gaines % (Auto) 4.4 (2.6-8.5) % Eos % (Auto) 0.4 (0-4.4) % Baso % (Auto) 0.2 (0.2-1.2) % Lymph # (Auto) 1.52 (0.9-3.2) K/mm3 Gaines # (Auto) 0.7 H (0.1-0.6) K/mm3 Eos # (Auto) 0.1 (0-0.3) K/mm3 Baso # (Auto) 0.0 (0.0-0.1) K/mm3 Abs Immat Gran (auto) 0.12 H (0.00-0.031) K/mm3 Absolute Neuts (auto) 13.1 H (1.3-6.7) K/mm3 Absolute Nucleated RBC 0.000 (0.0-0.012) K/mm3 Nucleated RBC % 0.0 (0.0-0.2) % PT 15.4 H (11.1-14.7) Seconds INR 1.2 APTT 35.8 (22.3-36.8) Seconds Sodium 134 L (137-145) mmol/L Potassium 4.2 (3.4-5.0) mmol/L Chloride 108 H (98-107) mmol/L Carbon Dioxide 21 L (22-30) mmol/L Anion Gap 5 (4-12) mmol/L BUN 17 (9-20) mg/dL Creatinine 1.15 (0.7-1.3) mg/dL Estim Creat Clear Calc 33 ml/min Estimated GFR > 60 (59 - ) Glucose 96 (65-110) mg/dL Lactic Acid 0.8 (0.7-2.0) mmol/L Calcium 8.7 (8.4-10.2) mg/dL Total Bilirubin 0.9 (0.2-1.3) mg/dL AST 44 (17-59) U/L ALT 26 (6-50) U/L Alkaline Phosphatase 126 (38-126) U/L Total Protein 6.7 (6.3-8.2) g/dL Albumin 3.6 (3.5-5.1) g/dL Lipase 80 (23-300) U/L Imaging Data Radiologist's impression: ITS Impressions Abdomen/Pelvis CT 01/25/25 10:44 IMPRESSION: 1. Septated perirectal abscess, roughly 4 cm. Discharge Plan Discharge Clinical Impression: Perirectal abscess Patient Disposition: Still a Patient Condition: Serious
[2025-01-25 10:09] LABS: INR 1.2; Partial Thromboplastin Time 35.8 Seconds (22.3-36.8); Prothrombin Time 15.4 Seconds (11.1-14.7)
[2025-01-25 10:23] LABS: Alanine Aminotransferase 26 U/L (6-50); Albumin Level 3.6 g/dL (3.5-5.1); Alkaline Phosphatase 126 U/L (38-126); Anion Gap 5 mmol/L (4-12); Aspartate Amino Transferase 44 U/L (17-59); Bilirubin,Total 0.9 mg/dL (0.2-1.3); Blood Urea Nitrogen 17 mg/dL (9-20); Calcium 8.7 mg/dL (8.4-10.2); Carbon Dioxide 21 mmol/L (22-30); Chloride 108 mmol/L (98-107); Estimated CRCL calculation 33 ml/min; Estimated Glomerular Filt Rate > 60; Glucose 96 mg/dL (65-110); Lipase 80 U/L (23-300); Potassium 4.2 mmol/L (3.4-5.0); Sodium 134 mmol/L (137-145); Total Protein 6.7 g/dL (6.3-8.2)
[2025-01-25] MEDS: PIPERACILLIN/TAZOBACTAM SOD 3.375 GM in SODIUM CHLORIDE 0.9% IV 50 ML 100 ML IVPB (12:11)
--- NOTE | 2025-01-25 12:16 | WPCEDHO ---
ED Hand Off Checklist All vitals saved:yes IV Site documented:yes All med administrations documented:yes Triage Note Triage Note pt ambulatory to ED for c/o butt 01/25/25 07:37 pain and constipation. pt says his last BM was 2 days ago. pt says he pulled valnetin/black stool out and it was loose Allergies simvastatin Allergy (Unknown, Verified 01/25/25 07:37) Nausea Family History (Last Reviewed 01/16/25 @ 04:45 by Varghese Palmer MD) Mother Acute myocardial infarction Sibling Family history of condition Family history of malignant neoplasm of uterus Father Malignant neoplasm of prostate Active Medications including assessments/comments Piperacillin Sod/Tazobactam (Sod 3.375 gm/ Sodium Chloride) 50 mls @ 100 mls/hr IVPB Q6HR BEN Last Admin: 01/25/25 12:11 Dose: 100 mls/hr Documented By: FÉLIX Infusion/Titration Document 01/25/25 12:11 FÉLIX (Rec: 01/25/25 12:12 FÉLIX [id number]) Intake IV Site Peripheral Access Left Forearm Container Volume 50 Waste Amount 0 Dosing Infusion Rate 100 Increase/Decrease Started Elapsed Time Elapsed Time ( 0m minutes) Interventions/Assessments General Assessment Start: 01/25/25 07:36 Freq: Status: Active Protocol: Document 01/25/25 07:46 LEV (Rec: 01/25/25 07:47 LEV [id number]) GA Gastrointestinal Assessment Gastrointestinal No Assessment WNL Gastrointestinal Blood in Stool Symptoms All Quadrants Description Flat,Soft All Quadrants Bowel Sounds Active Pattern Constipated Flatus Present IV / Saline Lock, Insert Start: 01/25/25 07:36 Freq: Status: Active Protocol: Document 01/25/25 09:54 LEV (Rec: 01/25/25 09:54 LEV [id number]) IV Assessment Peripheral Access Left Forearm IV Catheter Access Initiated IV Insertion Date 01/25/25 IV Insertion Time 09:54 Catheter Gauge 20 IV Insertion 1 Attempts IV Site Assessment WNL IV Care and WNL Maintenance Last Vital Signs Temperature 97.6 F 01/25/25 07:37 Pulse Rate 61 01/25/25 12:16 Respiratory Rate 18 01/25/25 12:16 Pulse Oximetry 100 01/25/25 12:16 Blood Pressure 136/72 01/25/25 12:16 Blood Pressure Mean 93 01/25/25 12:16 Blood Pressure Position Sitting 01/25/25 07:37 Oxygen Delivery Room Air 01/25/25 07:37 Weight 61.1 kg 01/25/25 07:37 Last Result - Abnormals Only WBC 15.5 K/mm3 (4.5-10.0) H 01/25/25 09:51 RBC 3.55 M/mm3 (4.6-6.20) L 01/25/25 09:51 Hgb 12.0 g/dL (14.0-18.0) L 01/25/25 09:51 Hct 35.5 % (42.0-52.0) L 01/25/25 09:51 Immature Gran % (Auto) 0.8 % (0-0.5) H 01/25/25 09:51 Neut % (Auto) 84.4 % (45.5-73.1) H 01/25/25 09:51 Lymph % (Auto) 9.8 % (18.3-44.2) L 01/25/25 09:51 Victoria # (Auto) 0.7 K/mm3 (0.1-0.6) H 01/25/25 09:51 Abs Immat Gran (auto) 0.12 K/mm3 (0.00-0.031) H 01/25/25 09:51 Absolute Neuts (auto) 13.1 K/mm3 (1.3-6.7) H 01/25/25 09:51 PT 15.4 Seconds (11.1-14.7) H 01/25/25 09:51 Sodium 134 mmol/L (137-145) L 01/25/25 09:51 Chloride 108 mmol/L (98-107) H 01/25/25 09:51 Carbon Dioxide 21 mmol/L (22-30) L 01/25/25 09:51 Most Recent Suicide Severity Rating Suicide Severity Rating NO RISK INDICATED 01/25/25 07:37
--- NOTE | 2025-01-25 13:25 | ADMGEN ---
This patient, Carlos Talbot, was admitted to [facility] Surg Room 319-01. Patient/family oriented to hospital policies and general routines including ID bracelet, bed and alarms, visiting hours, pain management, procedures, bathroom and other care routines, personal items, smoking policy, room service/diet, and visiting hours. Information on how to activate the Rapid Response Team has been discussed. Patient/Family are encouraged to report perceived risks to care and to ask questions if they do not understand what they are told or what they should do.
[2025-01-25] MEDS: LACTATED RINGERS 1,000 ML 125 ML IV CONT (13:43)
[2025-01-25] MEDS: HYDROmorphone HCL INJ (*CRX) 1 MG/ML SYR 0.5 MG IV PUSH (13:45)
[2025-01-25] MEDS: ONDANSETRON INJ 4 MG/2 ML VIAL IV PUSH (13:47)
--- NOTE | 2025-01-25 16:19 | PM.IMHP2 ---
H&P: HPI History of Present Illness Date/Time: 01/25/25 16:19 Chief Complaint: Recurrent perirectal abscess Narrative: The patient is a very poor historian. History is taken from the electronic record and from talking to the emergency room physician. Patient's did arrive and told me that the patient had a perirectal abscess in 2019 and I treated him for that. Records of that are not available to me at the present time. Patient presented in May of 2023 with a right-sided perirectal abscess. This was drained at the bedside in the emergency room by my partner Dr. Dinero. Patient was to follow up with Dr. Dinero but did not follow-up. He apparently did okay but then on gi, 9 days ago, presented again to the emergency room with a perirectal abscess. This was drained by the emergency room provider. Patient again asked to follow-up with general surgery, Dr. Dinero. He did not make an appointment but did come to the emergency room today complaining of constipation. Evaluation by the emergency room physician showed rectal tenderness swelling and leukocytosis. CT scan showed a recurrent perirectal abscess on the right side. Review of Dr. Dinero's I&D in May 2023 suggested that there were 2 abscesses, 1 on the right and 1 in the posterior midline. Patient's current abscess drained spontaneously in his hospital bed but continues to have purulent drainage. He is admitted now with plans to proceed with incision and drainage of complicated perirectal abscess which is recurrent. 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 It will be drained in surgery today. Review of Systems Review of Systems: ROS unobtainable: Yes unobtainable due to mental status [facility] Past Medical History Medical History Fracture, ankle bilateral ankle fracture Arthritis Surgical History Surgical History History of hip replacement bilateral hip replacements Family History Family History Mother Acute myocardial infarction Sibling Family history of condition Family history of malignant neoplasm of uterus Father Malignant neoplasm of prostate Social History Social History Smoking packs per day: 2 Smoking cigarettes per day: 40.0 Years smoked: 30 Smoking pack-years: 60.00 Smoking status: Former smoker Tobacco type: cigarettes Second hand tobacco smoke exposure: No Smoking end date: 02/20/86 Alcohol intake: current Drinks per week: 24 Substance use: never Substance use type: does not use Lack of Transportation: No Lack of Food: Never True Current Housing: I Have Housing Concerned About Future Housing: No Difficulty Paying Gas/Electric Bills: No Difficulty Paying for Meds: No Currently Unemployed: No Education: Decline to Answer Difficulty w/ Childcare or Family Care: Decline to Answer Occupation/Education: retired Additional occupation/education comments: 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 Gender identity (if verbalized by the patient): Male Spiritual care concerns: No Meds Home Medications and Allergies Home Medications ?Medication ?Instructions ?Recorded ?Confirmed ?Type acetaminophen 500 mg capsule 1,000 mg (2 x 500 mg) PO Q6H PRN 06/19/23 01/25/25 Rx pain #20 caps docusate sodium 100 mg capsule 100 mg PO DAILY #10 caps 06/19/23 01/25/25 Rx (Colace) loratadine 10 mg tablet (Claritin) 10 mg PO DAILY PRN allergy symptoms 01/25/25 01/25/25 History Allergies Allergy/AdvReac Type Severity Reaction Status Date / Time simvastatin AdvReac Unknown Nausea Verified 01/25/25 13:38 Vital Signs Vital Signs - 24 hr 01/25/25 07:37 01/25/25 07:47 01/25/25 07:48 Temperature 36.4 C Pulse Rate 71 Respiratory Rate 16 Blood Pressure 156/107 H 157/76 H Pulse Oximetry 96 96 94 Oxygen Delivery Room Air 01/25/25 08:00 01/25/25 08:01 01/25/25 08:15 Temperature Pulse Rate Respiratory Rate Blood Pressure 143/69 H Pulse Oximetry 96 96 98 Oxygen Delivery 01/25/25 08:30 01/25/25 08:45 01/25/25 08:46 Temperature Pulse Rate Respiratory Rate Blood Pressure 135/70 Pulse Oximetry 99 100 100 Oxygen Delivery 01/25/25 12:16 Temperature Pulse Rate 61 Respiratory Rate 18 Blood Pressure 136/72 Pulse Oximetry 100 Oxygen Delivery Exam Const: General: comfortable, no acute distress, alert and awake HENMT: Head: normocephalic and atraumatic Mouth: Yes Normal oral and palatal mucosa present Eyes: Conjunctivae: conjunctivae normal Pupils: Equal, round and reactive pupils present EOM: EOMs intact bilaterally Neck: Neck: normal visual inspection, no lymphadenopathy and nontender Resp: Effort & Inspection: normal respiratory effort Auscultation: clear to auscultation bilaterally Cardio: Rate: regular rate Rhythm: regular rhythm Heart sounds: no gallops, no murmurs and no rubs GI: Inspection: non-distended GI Palp: Yes Soft to palpation, No Tenderness to palpation present (GI), No Hepatomegaly present and No Splenomegaly present Rectal Exam: abscess (On the right, currently draining) Skin: Lesions: no lesions Rashes: no rashes Neuro: General: no focal motor deficits and CN's II-XI intact bilaterally Cranial nerves: Yes Equal, round and reactive pupils present, Yes Bilaterally intact EOM present, Yes facial symmetry and Yes Midline tongue present Speech: normal speech Motor exam (neuro): 5/5 motor strength present throughout and Motor abnormalities not present Extrem: General: no clubbing, cyanosis or edema and edema Results Labs Labs: Short CBC 01/25/25 Range/Units 09:51 WBC 15.5 H (4.5-10.0) K/mm3 Hgb 12.0 L (14.0-18.0) g/dL Hct 35.5 L (42.0-52.0) % Plt Count 344 (150-375) k/mm3 BMP 01/25/25 09:51 Sodium 134 L Potassium 4.2 Chloride 108 H Carbon Dioxide 21 L BUN 17 Creatinine 1.15 Glucose 96 Calcium 8.7 Liver Function 01/25/25 Range/Units 09:51 Total Bilirubin 0.9 (0.2-1.3) mg/dL AST 44 (17-59) U/L ALT 26 (6-50) U/L Alkaline Phosphatase 126 (38-126) U/L Albumin 3.6 (3.5-5.1) g/dL Imaging CT scan - pelvis: Attestation: I personally reviewed and interpreted this imaging study as follows: (Right-sided perirectal abscess) My impression: As above Radiologist's impression: IMPRESSION: 1. Septated perirectal abscess, roughly 4 cm. 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 Plan to proceed with incision and drainage under general anesthesia in the operating room. Abscess has partially drained but still needs to be drained surgically to make sure drainage is adequate. Prior Studies I have reviewed the following patient records and this information was taken into consideration when formulating the assessment and plan.: previous labs, previous ER visits, previous hospitalizations and previous clinic visits Consultations Consultations: I have discussed the care of this pt with the consulting providers.
--- NOTE | 2025-01-25 17:24 | P.PNAN_ITS ---
Anes - Initial Pre Proc Eval Procedure: Operation Date: 01/25/25 16:00 Proposed Procedures p I&D Marcela-Rectal Abscess(Not Applicable) - Edson Pozo MD Date/Time: 01/25/25 17:24 Surgeon: Edson Pozo MD Pre Op Diagnosis: perirectal abscess Patient Data Age: 79 Gender: M Height: 1.6 m Weight: 58.4 kg Last Vital Signs Temp 36.4 C 01/25/25 07:37 Pulse 61 01/25/25 12:16 Resp 18 01/25/25 12:16 BP 136/72 01/25/25 12:16 Pulse Ox 100 01/25/25 12:16 O2 Del Method Room Air 01/25/25 07:37 Allergies Allergy/AdvReac Type Severity Reaction Status Date / Time simvastatin AdvReac Unknown Nausea Verified 01/25/25 13:38 Home Medications ?Medication ?Instructions ?Recorded ?Confirmed ?Type acetaminophen 500 mg capsule 1,000 mg (2 x 500 mg) PO Q6H PRN 06/19/23 01/25/25 Rx pain #20 caps docusate sodium 100 mg capsule 100 mg PO DAILY #10 cap s 06/19/23 01/25/25 Rx (Colace) loratadine 10 mg tablet (Claritin) 10 mg PO DAILY PRN allergy symptoms 01/25/25 01/25/25 History Laboratory Tests 01/25/25 09:51 WBC 15.5 H K/mm3 (4.5-10.0) RBC 3.55 L M/mm3 (4.6-6.20) Hgb 12.0 L g/dL (14.0-18.0) Hct 35.5 L % (42.0-52.0) MCV 100.0 fl (80-100) MCH 33.8 pg (26-34) MCHC 33.8 g/dl (32-36) RDW 12.9 % (11.5-14.5) Plt Count 344 k/mm3 (150-375) MPV 9.6 fl (7.4-10.4) Immature Gran % (Auto) 0.8 H % (0-0.5) Neut % (Auto) 84.4 H % (45.5-73.1) Lymph % (Auto) 9.8 L % (18.3-44.2) [place] % (Auto) 4.4 % (2.6-8.5) Eos % (Auto) 0.4 % (0-4.4) Baso % (Auto) 0.2 % (0.2-1.2) Lymph # (Auto) 1.52 K/mm3 (0.9-3.2) [place] # (Auto) 0.7 H K/mm3 (0.1-0.6) Eos # (Auto) 0.1 K/mm3 (0-0.3) Baso # (Auto) 0.0 K/mm3 (0.0-0.1) Abs Immat Gran (auto) 0.12 H K/mm3 (0.00-0.031) Absolute Neuts (auto) 13.1 H K/mm3 (1.3-6.7) Absolute Nucleated RBC 0.000 K/mm3 (0.0-0.012) Nucleated RBC % 0.0 % (0.0-0.2) PT 15.4 H Seconds (11.1-14.7) INR 1.2 APTT 35.8 Seconds (22.3-36.8) Sodium 134 L mmol/L (137-145) Potassium 4.2 mmol/L (3.4-5.0) Chloride 108 H mmol/L (98-107) Carbon Dioxide 21 L mmol/L (22-30) Anion Gap 5 mmol/L (4-12) BUN 17 mg/dL (9-20) Creatinine 1.15 mg/dL (0.7-1.3) Estim Creat Clear Calc 33 ml/min Estimated GFR > 60 (59 - ) Glucose 96 mg/dL (65-110) Lactic Acid 0.8 mmol/L (0.7-2.0) Calcium 8.7 mg/dL (8.4-10.2) Total Bilirubin 0.9 mg/dL (0.2-1.3) AST 44 U/L (17-59) ALT 26 U/L (6-50) Alkaline Phosphatase 126 U/L (38-126) Total Protein 6.7 g/dL (6.3-8.2) Albumin 3.6 g/dL (3.5-5.1) Lipase 80 U/L (23-300) Patient hx anesthesia problems: other (lightweight to anesthesia) Family hx anesthesia problems: none Results Review: All pre-operative results and documents have been reviewed as part of the pre- operative evaluation. [facility] Past Medical History Medical History Fracture, ankle bilateral ankle fracture Arthritis Surgical History Surgical History History of hip replacement bilateral hip replacements Family History Family History Mother Acute myocardial infarction Sibling Family history of condition Family history of malignant neoplasm of uterus Father Malignant neoplasm of prostate Social History Social History Smoking packs per day: 2 Smoking cigarettes per day: 40.0 Years smoked: 30 Smoking pack-years: 60.00 Smoking status: Former smoker Tobacco type: cigarettes Second hand tobacco smoke exposure: No Smoking end date: 02/20/86 Alcohol intake: current Drinks per week: 24 Substance use: never Substance use type: does not use Lack of Transportation: No Lack of Food: Never True Current Housing: I Have Housing Concerned About Future Housing: No Difficulty Paying Gas/Electric Bills: No Difficulty Paying for Meds: No Currently Unemployed: No Education: Decline to Answer Difficulty w/ Childcare or Family Care: Decline to Answer Occupation/Education: retired Additional occupation/education comments: 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 Informed Consent: The patient's anesthetic plan and its attendant risks and benefits were discussed with the patient/family/POA. Questions were solicited and answers provided to the satisfaction of the patient/family/POA.
--- NOTE | 2025-01-25 17:26 | WPDHPUPDATE1 ---
History and Physical Update Update Date/Time: 01/25/25 17:26 History and Physical has been reviewed, including an updated exam of the patient. There are NO changes in the patient's condition. Risks, benefits, and alternatives have been discussed and questions answered. Patient agrees to proceed with procedure.
--- NOTE | 2025-01-25 18:37 | S_PTH ---
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
--- NOTE | 2025-01-25 18:57 | P.OP_ITS ---
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 He had an abscess drained 9 days ago but this also recurred. He returned to the emergency room today. He was found both by exam and imaging to have a large recurrent right-sided perirectal abscess. While he was in his room in the hospital, waiting to have surgery, the abscess drained spontaneously but with still quite a bit of residual purulent fluid. He is taken to surgery now for I and D of this complicated recurrent perirectal abscess. Findings The drainage of the abscess and external opening was in a heavily scarred area on the right side of the rectum. This probed to the posterior midline where there was quite a bit of inflammatory tissue. There was also a distal rectal polyp I have been inflammatory but which was removed and sent to pathology. There was also tracking, not only to the posterior midline, but to the left side of the rectum. He had significant stricturing of the anal canal, probably from scar tissue. Left lateral opening was made into the intersphincteric space and this also communicated with the posterior midline. Description of Procedure Patient was taken to surgery and induced into general anesthesia. He was placed in prone ayaz-knife position. The buttocks were taped apart. Prep and drape was carried out. He still had some mild purulent drainage from the opening on the right side of the rectum about 2 cm from the anal verge. This was heavily scarred. I removed some inflamed skin tags from the opening. I was able to place a small Hill-Herring anoscope in the rectum but the medium Hill-Herring was difficult to place due to the narrowing of the anal canal. There was, in the posterior midline, inflammatory tissue and a large ulcer exposing the sphincter muscle. I used the rectal probe and was easily able to not only probe to the ulcerated area but also pass the posterior midline into the left side of the perianal space. I used a quarter-inch Maria Ines drain and passed it from the external opening on the right side through the ulcerated area in the posterior midline. I then exposed the left lateral position. I made a mucosal incision and then elevated the lower 3rd of the internal sphincter muscle and divided it. From there I was easily able to pass a probe to the posterior midline ulcer. I exchanged the probe for a curved clamp and then brought 1 of the ends of the [place] drain through the midline and to the left lateral wound. There was no further purulent fluid. There was a polyp in the distal rectum associated with the post anterior mid ulcer. I removed this and sent it to pathology labeled rectal polyp. I then cut the [place] drain in its midportion so that the right side tract to the posterior midline and the left-sided opening tract to the posterior midline. I sutured both the left and right Maria Ines limbs to the associated limb in the posterior midline creating a ring or seton to continue drainage of this area. When this was completed, I again checked the anal canal. There was no bleeding or other pathology the I could see. The rectum was dressed was Xeroform gauze, fluffs, ABDs, and Medipore tape. The patient was returned to a supine position, awakened and extubated. He was then taken to recovery in good condition. Sponge and needle counts were correct x2. Estimated Blood Loss -5 Drains Yes ([place] drains used as setons) Packing No Pathology Yes (Distal rectal polyp) Complications None Condition Stable Disposition PACU [facility] Billing Surgery - Charge Forward: Surgery Billing (Incision and drainage of perirectal abscess, placement of setons, transanal resection of rectal polyp)
[2025-01-25] MEDS: LACTATED RINGERS 1,000 ML 30 ML IV CONT (19:05)
[2025-01-25] MEDS: fentaNYL CITRATE INJ (*CRX) 100 MCG/2 ML VIAL 25 MCG IV PUSH ×3 (19:15→19:23)
[2025-01-25] MEDS: MORPHINE SULFATE (*CRX) 4 MG/ML INJ 2 MG IV PUSH (20:15)
[2025-01-25] MEDS: ENOXAPARIN 30 MG/0.3 ML SYRINGE SUB-Q (21:49)
[2025-01-25] MEDS: HYDROcodone/acetaminophen (*CRX) 5-325 MG TABLET 1 TAB PO (22:10)
[2025-01-26 01:24] VITALS: BP 124/49; PULSE 54; TEMP 36.6; O2SAT 93
[2025-01-26] MEDS: HYDROcodone/acetaminophen (*CRX) 5-325 MG TABLET 1 TAB PO ×2 (05:11→11:33)
[2025-01-26 05:24] VITALS: BP 117/62; PULSE 53; TEMP 37.3; O2SAT 98
[2025-01-26 06:24] LABS: Hematocrit 35.4 % (42.0-52.0); Hemoglobin 11.6 g/dL (14.0-18.0); Mean Corpuscular HGB Conc 32.8 g/dl (32-36); Mean Corpuscular Hemoglobin 34.0 pg (26-34); Mean Corpuscular Volume 103.8 fl (80-100); Platelet Count Result 378 k/mm3 (150-375); Red Blood Count 3.41 M/mm3 (4.6-6.20); White Blood Count 13.1 K/mm3 (4.5-10.0)
[2025-01-26 06:52] LABS: Anion Gap 5 mmol/L (4-12); Blood Urea Nitrogen 17 mg/dL (9-20); Calcium 8.5 mg/dL (8.4-10.2); Carbon Dioxide 24 mmol/L (22-30); Chloride 106 mmol/L (98-107); Estimated CRCL calculation 32 ml/min; Estimated Glomerular Filt Rate 49; Glucose 71 mg/dL (65-110); Potassium 4.2 mmol/L (3.4-5.0); Sodium 135 mmol/L (137-145)
[2025-01-26] MEDS: ENOXAPARIN 30 MG/0.3 ML SYRINGE SUB-Q ×2 (08:37→22:20)
[2025-01-26] MEDS: PSYLLIUM POWDER PACKET 1 PACKET PO ×2 (08:37→16:37)
[2025-01-26] MEDS: MINERAL OIL 30 ML UDC 15 ML PO ×2 (08:37→16:37)
[2025-01-26] MEDS: SODIUM CHLORIDE 0.9% IV 250 ML 100 ML IV CONT (12:07)
[2025-01-26] MEDS: SODIUM CHLORIDE 0.9% IV 1,000 ML 80 ML IV CONT ×2 (12:08→22:22)
--- NOTE | 2025-01-26 15:05 | P.PNGS_ITS ---
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 Patient is still very uncomfortable. Continue inpatient care for now. Also dehydrated, continue IV fluids. Subjective Subjective Date/Time Seen: 01/26/25 15:05 Post Op day: 1 Patient reports: still having pain, tolerating a regular diet ( Eating fair.), voiding w/o difficulty, no bowel movement and afebrile Interval history: Having quite a bit of rectal pain and difficult to get comfortable. Pain medication is helping. Exam Const: General: cooperative and awake; No acute distress GI: Rectal Exam: No abscess ( no purulent drainage), Fistula present (GI) ( Seton in place, no purulent drainage) and tenderness Objective Data Vital Signs Vital Signs: Vital Signs - 24 hr 01/25/25 19:05 01/25/25 19:20 01/25/25 19:35 Temperature 37.4 C Pulse Rate 79 66 61 Respiratory Rate 17 18 18 Blood Pressure 88/57 L 159/83 H 142/95 H Pulse Oximetry 98 100 96 Oxygen Delivery Room Air Room Air Room Air 01/25/25 20:00 01/25/25 20:00 01/25/25 20:15 Temperature 37.3 C 37.2 C Pulse Rate 57 L 56 L Respiratory Rate 17 20 Blood Pressure 147/58 H 140/52 L Pulse Oximetry 100 99 Oxygen Delivery Room Air 01/25/25 20:30 01/25/25 20:45 01/25/25 21:00 Temperature 37.0 C 37.0 C 36.9 C Pulse Rate 62 62 70 Respiratory Rate 18 16 Blood Pressure 128/44 L 133/46 L 93/50 L Pulse Oximetry 93 96 95 Oxygen Delivery 01/25/25 22:00 01/26/25 01:24 01/26/25 05:24 Temperature 37.1 C 36.6 C 37.3 C Pulse Rate 73 54 L 53 L Respiratory Rate 18 Blood Pressure 87/51 L 124/49 L 117/62 Pulse Oximetry 96 93 98 Oxygen Delivery 01/26/25 09:00 Temperature Pulse Rate Respiratory Rate Blood Pressure Pulse Oximetry Oxygen Delivery Room Air Intake/Output Intake/Output: Intake & Output 01/23/25 01/24/25 01/25/25 01/26/25 23:59 23:59 23:59 23:59 Intake Total 250 300 Output Total 0 Balance 250 300 Meds/Results Medications: Active Medications Generic Name Dose Route Start Last Admin Trade Name Freq PRN Reason Stop Dose Admin Acetaminophen 500 mg 01/25/25 19:39 Acetaminophen 500 Mg Tablet PO Q6H PRN Pain Rated 1-3 Hydrocodone Bitart/Acetaminophen 1 tab 01/25/25 19:39 01/26/25 11:33 Hydrocodone/Acetaminophen (*Crx) 5-325 Mg Tablet PO 1 tab Q4H PRN Administration Pain Rated 4-6 Enoxaparin Sodium 30 mg 01/25/25 21:00 01/26/25 08:37 Enoxaparin 30 Mg/0.3 Ml Syringe SUB-Q 30 mg Q12HR BEN Administration Ibuprofen 800 mg in 200 mls @ 400 mls/hr 01/25/25 19:39 Caldolor 800 Mg/200 Ml IVPB Q6H PRN Breakthrough Pain Rated 1-3 or NPO Sodium Chloride 1,000 mls @ 80 mls/hr 01/26/25 11:35 01/26/25 12:08 Normal Saline Iv IV CONT 80 mls/hr .[id number] BEN Administration Mineral Oil 15 ml 01/26/25 09:00 01/26/25 08:37 Mineral Oil 30 Ml Udc PO 15 ml BID BEN Administration Morphine Sulfate 1 mg 01/25/25 19:39 Morphine Sulfate (*Crx) 4 Mg/Ml Inj IV PUSH Q2H PRN Breakthrough Pain Rated 4-6 or NPO Morphine Sulfate 2 mg 01/25/25 19:39 01/25/25 20:15 Morphine Sulfate (*Crx) 4 Mg/Ml Inj IV PUSH 2 mg Q2H PRN Administration Breakthrough Pain Rated 7-10 or NPO Psyllium Hydrophilic Mucilloid 1 packet 01/26/25 09:00 01/26/25 08:37 Psyllium Powder Packet PO 1 packet BID BEN Administration Radiology Results: ITS Impressions Abdomen/Pelvis CT 01/25/25 10:44 IMPRESSION: 1. Septated perirectal abscess, roughly 4 cm. Labs Labs: Laboratory Results - last 24 hr 01/26/25 05:20 WBC 13.1 H RBC 3.41 L Hgb 11.6 L Hct 35.4 L MCV 103.8 H MCH 34.0 MCHC 32.8 RDW 13.2 Plt Count 378 H MPV 10.2 Sodium 135 L Potassium 4.2 Chloride 106 Carbon Dioxide 24 Anion Gap 5 BUN 17 Creatinine 1.39 H Estim Creat Clear Calc 32 Estimated GFR 49 L Glucose 71 Calcium 8.5 creatinine slightly higher and GFR lower, receiving IV fluids
[2025-01-26 16:03] VITALS: BP 124/55; PULSE 58; RESP 17; TEMP 36.2; O2SAT 99
[2025-01-26 21:18] VITALS: BP 137/62; PULSE 53; RESP 18; TEMP 36.8; O2SAT 96
[2025-01-27 05:19] VITALS: BP 161/74; PULSE 58; RESP 16; TEMP 36.8; O2SAT 95
[2025-01-27 06:18] LABS: Hematocrit 32.9 % (42.0-52.0); Hemoglobin 10.7 g/dL (14.0-18.0); Mean Corpuscular HGB Conc 32.5 g/dl (32-36); Mean Corpuscular Hemoglobin 34.0 pg (26-34); Mean Corpuscular Volume 104.4 fl (80-100); Platelet Count Result 346 k/mm3 (150-375); Red Blood Count 3.15 M/mm3 (4.6-6.20); White Blood Count 7.0 K/mm3 (4.5-10.0)
[2025-01-27 07:26] LABS: Anion Gap 4 mmol/L (4-12); Blood Urea Nitrogen 14 mg/dL (9-20); Calcium 7.9 mg/dL (8.4-10.2); Carbon Dioxide 23 mmol/L (22-30); Chloride 108 mmol/L (98-107); Estimated CRCL calculation 35 ml/min; Estimated Glomerular Filt Rate 56; Glucose 88 mg/dL (65-110); Potassium 4.6 mmol/L (3.4-5.0); Sodium 135 mmol/L (137-145)
[2025-01-27] MEDS: MINERAL OIL 30 ML UDC 15 ML PO (08:06)
[2025-01-27] MEDS: PSYLLIUM POWDER PACKET 1 PACKET PO (08:06)
[2025-01-27] MEDS: ENOXAPARIN 30 MG/0.3 ML SYRINGE SUB-Q (08:07)
[2025-01-27] MEDS: HYDROcodone/acetaminophen (*CRX) 5-325 MG TABLET 1 TAB PO (10:20)
--- NOTE | 2025-01-27 15:32 | PM.DS ---
DS: Admitting Diagnosis Discharge Date 01/27/25 Admitting Diagnosis recurrent perirectal abscess DS: Discharge Diagnosis Discharge Diagnosis (1) Perirectal abscess: Code(s): K61.1 - Rectal abscess Status: Acute DS: Summary Hospital Course Reason for hospitalization: Patient presented to the hospital on 01/25/2025 with complaints of constipation. He has previously had multiple I and D's of a perirectal abscess with the most recent being on 01/16/[address] scan showed recurrent perirectal abscess on right side. Elevated white blood cell count of 15.5 It drained spontaneously in his hospital bed, but he continues to have purulence drainage. Admitted to the hospital with plans to proceed with incision and drainage of complicated perirectal abscess which is recurrent. Hospital Course: Patient underwent incision and drainage of perirectal abscess, placement of setons, transanal resection of rectal polyp on 01/25/2025. He tolerated the procedure well and was taken to recovery in good condition. Them back up to medical surgical floor for monitoring. He continued to have some discomfort the following day. IV fluids were continued for dehydration. Pain medications continued. WBC continued to normalize throughout hospital stay. On day of discharge, 01/27/2025, patient had a bowel movement. Tolerated regular diet. Continued to improve clinically. Surgically stable for discharge. Status at Discharge Functional status at discharge: independent ambulation Time Spent with Patient Time attestation: Total time spent providing and/or coordinating discharge services: Time spent: Less than 30 minutes Exam Const: General: comfortable and no acute distress Eyes: General: appearance normal, both eyes and all related structures Neck: Neck: supple and no JVD Resp: Effort & Inspection: normal respiratory effort Cardio: Rate: bradycardic GI: Other: No recurrent abscess. No purulent drainage. Seton in place. Skin: General skin exam: normal color Neuro: Sensory Exam: normal sensation Extrem: General: normal to inspection Psych: Mental Status: mental status grossly normal DS: Data Data Completed and Pending Pending studies at discharge: Pending at discharge 01/25/25 18:37 Surgical [PTH] Routine Labs on day of discharge: Labs from last 24 hours 01/27/25 05:49 WBC 7.0 RBC 3.15 L Hgb 10.7 L Hct 32.9 L MCV 104.4 H MCH 34.0 MCHC 32.5 RDW 12.9 Plt Count 346 MPV 10.0 Sodium 135 L Potassium 4.6 Chloride 108 H Carbon Dioxide 23 Anion Gap 4 BUN 14 Creatinine 1.24 Estim Creat Clear Calc 35 Estimated GFR 56 L Glucose 88 Calcium 7.9 L Procedures/Treatments: Procedures Operation Date: 01/25/25 16:00 Actual Procedure Side Surgeon p I&D Marcela-Rectal Abscess Not Applicable Edson Pozo MD Imaging Radiologist's impression: ITS Impressions Abdomen/Pelvis CT 01/25/25 10:44 IMPRESSION: 1. Septated perirectal abscess, roughly 4 cm. Discharge Plan Discharge Attending physician on discharge: Edson Pozo Consulting providers: Reji Martin Discharging Clinician: Anali Andrade Anticipated Discharge Date/Time: 01/27/25 11:37 Patient Disposition: Home Activity: other - see discharge instructions Diet: regular Wound Care Instructions: follow printed instructions Discharge Instructions: Keep the surgical area clean by gently washing with warm water and mild soap after each bowel movement. Pat the area, do not rub or wipe. You may shower as you regularly do. Avoid heavy lifting more than 10-15 pounds for the next two weeks. Light activity and walking is encouraged. Sitz bath 2 times per day for 10-15 minutes to promote comfort and healing. Keep the area covered with a gauze dressing over the rectum. Continue mineral oil and and Metamucil 2x per day. Drink plenty of fluids (6-8 glasses per day). Prescription pain medications have been sent to your pharmacy. Please pick these up and take them as needed. You may also take Tylenol and ibuprofen for pain. Call the general surgery office at [phone] to schedule an appointment with Dr. Pozo in 2 weeks. Call the office or go to the emergency department if you experience fever >101 degrees, increasing pain, redness, or swelling, foul smelling drainage or pus, bleeding that does not sstop with gentle pressure, inability to urinate, or severe constipation. Patient Instructions: Antibiotic Form Patient Language: Burkinan Stand Alone Forms: General Discharge Information, Work/School Release IP Follow-up/Referrals: Edson Pozo MD [Physician, General Surgery] - Call for Appointment Referral Note: 2 weeks Discharge Medications: New hydrocodone-acetaminophen 5-325 mg Tablet 1 tablet PO Q4H PRN (Reason: Pain Rated 4-6) Qty: 10 0RF Metamucil (with sugar) 3.4 gram Powder In Packet 1 tbsp PO BID Qty: 30 0RF mineral oil Oil 15 ml PO BID Qty: 473 0RF Continued loratadine [Claritin] 10 mg tablet 10 mg PO DAILY PRN (Reason: allergy symptoms) acetaminophen 500 mg capsule 1,000 mg PO Q6H PRN (Reason: pain) Qty: 20 0RF docusate sodium [Colace] 100 mg capsule 100 mg PO DAILY Qty: 10 0RF Date of admission: 01/25/25 11:48 Primary Care Provider: PHYSICIAN,SENIOR [employer]ELOPER Admitting Provider: Edson Pozo Attending physician on admission: Edson Pozo Condition: Improved
== END 2025-01-27 13:02 | disposition home or self-care (01) | DRG 349 ==
LOC: ANHED 08:30 → ANH3MEDSUR 12:00
PROVIDERS: Admitting Provider Surgery; Emergency Provider Emergency Medicine; Visit Provider Surgery
PROC: 0D9P70Z Drainage of Rectum with Drainage Device, Via Natural or Artificial Opening (ICD-10-PCS; CPT 46040; principal; 2025-01-25 16:00)
DX: K60.42 Rectal fistula, complex (principal); K62.1 Rectal polyp; K59.00 Constipation, unspecified; F10.20 Alcohol dependence, uncomplicated; E86.0 Dehydration; Z96.643 Presence of artificial hip joint, bilateral; Z87.891 Personal history of nicotine dependence; Z91.199 Patient's noncompliance with other medical treatment and regimen due to unspecified reason
CPT/HCPCS: 36415; 74177; 80048; 80053; 83605; 83690; 85025; 85027; 85610; 85730; 87040; 87075; 87205; 88305; 96365; 99285; A9270; G0378; J1171; J1650; J2003; J2270; J2405; J2543; J2704; J3010; J7030; J7050; J7120; Q9967